=== PATIENT | female | born 1965 | race African-American/Black ===

== ENCOUNTER 2017-03-04 12:59 | Emergency (ER) | payer OTHER, MEDICAID ==
[~2017-03-04] VITALS: Ht 162.6 cm; Wt 70.0 kg
[~2017-03-04 12:59] MED LIST: LAMO25TA4 PO; LEVO25TA7 PO; MECL-109 PO; TRAM50TA3 PO
[2017-03-04] MEDS ORDERED: SODIUM CHLORIDE 0.9% 1,000 ML IV ONE (13:57)
[2017-03-04] MEDS ORDERED: LEVETIRACETAM 500MG PREMIX 100 ML IV ONE (14:00)
[2017-03-04 14:33] LABS: CLARITY URINE CLEAR (CLEAR); COLOR URINE YELLOW (YELLOW); GLUCOSE URINE NEGATIVE (NEGATIVE); KETONES URINE 1+ (NEGATIVE); LEUKOCYTE ESTERASE URINE 1+ (NEGATIVE); NITRITE URINE NEGATIVE (NEGATIVE); OCCULT BLOOD URINE NEGATIVE (NEGATIVE); PH URINE 5.5 (4.5-8.0); PROTEIN URINE NEGATIVE (NEGATIVE); SPECIFIC GRAVITY URINE 1.021 (1.005-1.030); UROBILINOGEN URINE 0.2 E.U./dL (0.2-1.0)
[2017-03-04 15:04] LABS: *AMPHETAMINES SCREEN URINE NEGATIVE (NEGATIVE); *BARBITURATES SCREEN URINE NEGATIVE (NEGATIVE); *BENZODIAZEPINES SCREEN URINE NEGATIVE (NEGATIVE); *COCAINE SCREEN URINE NEGATIVE (NEGATIVE); CANNABINOID URINE SCREEN NEGATIVE (NEGATIVE); METHADONE URINE SCREEN NEGATIVE (NEGATIVE); OPIATES URINE SCREEN NEGATIVE (NEGATIVE); PHENCYCLIDINE URINE SCREEN NEGATIVE (NEGATIVE)
[2017-03-04 15:04] LABS: INR 1.1; PROTHROMBIN TIME 11.7 sec
[2017-03-04 15:08] LABS: BASOPHILS % 0.7 % (0.0-2.0); EOSINOPHILS % 4.2 % (0.0-5.0); HEMATOCRIT. 37.1 % (36.0-48.0); HEMOGLOBIN. 12.2 g/dL (12.0-16.0); LYMPHOCYTES % 30.9 % (20.0-50.0); MEAN CORPUSCULAR HEMOGLOBIN 27.2 pg (28.0-32.0); MEAN CORPUSCULAR VOLUME 82.3 fL (81.0-99.0); MEAN PLATELET VOLUME 8.5 fl (7.4-10.4); NEUTROPHILS % 57.2 % (40.0-76.0); PLATELET 208 x1000/uL (130-400); RED BLOOD CELL COUNT 4.51 mill/uL (4.2-5.4); RED CELL DISTRIBUTION WIDTH 14.5 % (11.6-14.6)
[2017-03-04 15:22] LABS: CHLORIDE 109 mEq/L (98-107)
[2017-03-04 15:28] LABS: CREATINE KINASE 87 IU/L (26-192); PHENYTOIN 0.5 ug/mL (10-20); TROPONIN I < 0.02 ng/mL (0.00-0.04)
[2017-03-04 15:35] LABS: CARBON DIOXIDE 24 mEq/L (21-32); ETHANOL BLOOD < 10 mg/dL
[2017-03-04 15:41] LABS: CARBAMAZEPINE < 0.5 ug/mL (4-12); PHENOBARBITAL < 2.1 ug/mL (15.0-40.0); VALPROIC ACID < 3.0 ug/mL (50-100)
[2017-03-04 16:56] VITALS: BP 133/88
== END 2017-03-04 16:56 | disposition home or self-care (01) ==
LOC: ER 13:02
DX: R56.9 Unspecified convulsions (principal); N39.0 Urinary tract infection, site not specified; E05.90 Thyrotoxicosis, unspecified without thyrotoxic crisis or storm; Z88.5 Allergy status to narcotic agent
CPT/HCPCS: 36415; 80053; 80156; 80165; 80184; 80185; 80305; 81001; 82550; 83605; 84443; 84484; 85025; 85610; 93005; 96365; 99285; G0482; J1953; J7030

== ENCOUNTER 2017-06-03 13:17 | Emergency (ER) | payer OTHER, MEDICAID ==
[~2017-06-03] VITALS: Ht 162.6 cm; Wt 80.0 kg
[2017-06-03 14:15] LABS: EOSINOPHILS % 4.8 % (0.0-5.0); HEMATOCRIT. 41.4 % (36.0-48.0); HEMOGLOBIN. 13.9 g/dL (12.0-16.0); LYMPHOCYTES % 34.6 % (20.0-50.0); MEAN CORPUSCULAR HEMOGLOBIN 28.5 pg (28.0-32.0); MEAN CORPUSCULAR VOLUME 84.9 fL (81.0-99.0); MEAN PLATELET VOLUME 8.4 fl (7.4-10.4); MONOCYTES % 8.4 % (2.0-8.0); NEUTROPHILS % 51.2 % (40.0-76.0); PLATELET 198 x1000/uL (130-400); RED BLOOD CELL COUNT 4.87 mill/uL (4.2-5.4); RED CELL DISTRIBUTION WIDTH 15.6 % (11.6-14.6)
[2017-06-03 14:22] LABS: INR 1.1; PROTHROMBIN TIME 11.4 sec (9.4-11.6)
[2017-06-03 14:28] LABS: CARBON DIOXIDE 28 mEq/L (21-32); CHLORIDE 107 mEq/L (98-107)
[2017-06-03 14:33] LABS: CARBAMAZEPINE < 0.5 ug/mL (4-12); HCG SCREEN NEGATIVE; PHENOBARBITAL < 2.1 ug/mL (15.0-40.0)
[2017-06-03 17:50] VITALS: BP 130/71
== END 2017-06-03 18:04 | disposition home or self-care (01) ==
LOC: ER 13:22
DX: R56.9 Unspecified convulsions (principal); E03.9 Hypothyroidism, unspecified; Z87.440 Personal history of urinary (tract) infections; Z88.6 Allergy status to analgesic agent
CPT/HCPCS: 36415; 70450; 80053; 80156; 80165; 80184; 80185; 80307; 80329; 82962; 84703; 85025; 85610; 99285

== ENCOUNTER 2018-02-04 18:53 | Emergency (ER) | payer OTHER, MEDICAID ==
[~2018-02-04] VITALS: Ht 157.5 cm; Wt 83.0 kg
[2018-02-04] MEDS ORDERED: SODIUM CHLORIDE 0.9% 1,000 ML IV ONE (19:38)
[2018-02-04] MEDS ORDERED: LEVETIRACETAM 500MG TABLET PO ONE (19:45)
[2018-02-04] MEDS ORDERED: TRAMADOL 50MG TABLET PO ONE (19:45)
[2018-02-04 19:57] LABS: BASOPHILS % 1.1 % (0.0-2.0); EOSINOPHILS % 3.7 % (0.0-5.0); HEMATOCRIT. 41.4 % (36.0-48.0); HEMOGLOBIN. 13.9 g/dL (12.0-16.0); LYMPHOCYTES % 35.1 % (20.0-50.0); MEAN CORPUSCULAR HEMOGLOBIN 28.6 pg (28.0-32.0); MEAN CORPUSCULAR VOLUME 85.5 fL (81.0-99.0); MEAN PLATELET VOLUME 7.9 fl (7.4-10.4); MONOCYTES % 7.3 % (2.0-8.0); NEUTROPHILS % 52.8 % (40.0-76.0); PLATELET 253 x1000/uL (130-400); RED BLOOD CELL COUNT 4.84 mill/uL (4.2-5.4)
[2018-02-04 20:00] LABS: CHLORIDE 106 mEq/L (98-107)
[2018-02-04 20:04] LABS: ETHANOL BLOOD < 10 mg/dL
[2018-02-04 21:13] LABS: CLARITY URINE CLEAR (CLEAR); COLOR URINE YELLOW (YELLOW); KETONES URINE NEGATIVE (NEGATIVE); LEUKOCYTE ESTERASE URINE TRACE (NEGATIVE); NITRITE URINE NEGATIVE (NEGATIVE); OCCULT BLOOD URINE NEGATIVE (NEGATIVE); PH URINE 5.5 (4.5-8.0); PROTEIN URINE NEGATIVE (NEGATIVE); SPECIFIC GRAVITY URINE 1.014 (1.005-1.030); UROBILINOGEN URINE 0.2 E.U./dL (0.2-1.0)
[2018-02-04 21:24] LABS: *AMPHETAMINES SCREEN URINE NEGATIVE (NEGATIVE)
[2018-02-04 21:25] LABS: *BARBITURATES SCREEN URINE NEGATIVE (NEGATIVE); *BENZODIAZEPINES SCREEN URINE NEGATIVE (NEGATIVE); *COCAINE SCREEN URINE NEGATIVE (NEGATIVE)
[2018-02-04 21:26] LABS: CANNABINOID URINE SCREEN NEGATIVE (NEGATIVE); METHADONE URINE SCREEN NEGATIVE (NEGATIVE); PHENCYCLIDINE URINE SCREEN NEGATIVE (NEGATIVE)
[2018-02-04 21:27] LABS: OPIATES URINE SCREEN NEGATIVE (NEGATIVE)
[2018-02-04] MEDS ORDERED: KETOROLAC 60MG/2ML VIAL IM ONE (21:45)
[2018-02-04 22:05] VITALS: BP 140/69
== END 2018-02-04 23:10 | disposition home or self-care (01) ==
LOC: ER 18:53
DX: G40.909 Epilepsy, unspecified, not intractable, without status epilepticus (principal); G43.909 Migraine, unspecified, not intractable, without status migrainosus; E03.9 Hypothyroidism, unspecified; Z88.5 Allergy status to narcotic agent
CPT/HCPCS: 36415; 70450; 71045; 80053; 80305; 81003; 84484; 85025; 93005; 96372; 99285; G0482; J1885; J7030

== ENCOUNTER 2018-02-18 14:08 | Emergency (ER) | payer OTHER, MEDICAID ==
[~2018-02-18] VITALS: Ht 172.7 cm; Wt 100.0 kg
[2018-02-18] MEDS ORDERED: LEVETIRACETAM 500MG PREMIX 100 ML IV ONE (14:45)
[2018-02-18] MEDS ORDERED: LORAZEPAM 2MG/ML CPJ IV ONE (14:45)
[2018-02-18 16:40] LABS: CHLORIDE 106 mEq/L (98-107)
[2018-02-18 16:41] LABS: BASOPHILS % 0.8 % (0.0-2.0); EOSINOPHILS % 1.4 % (0.0-5.0); HEMATOCRIT. 40.7 % (36.0-48.0); HEMOGLOBIN. 13.9 g/dL (12.0-16.0); LYMPHOCYTES % 31.5 % (20.0-50.0); MEAN CORPUSCULAR HEMOGLOBIN 29.2 pg (28.0-32.0); MEAN CORPUSCULAR VOLUME 85.5 fL (81.0-99.0); MEAN PLATELET VOLUME 8.2 fl (7.4-10.4); NEUTROPHILS % 59.3 % (40.0-76.0); PLATELET 259 x1000/uL (130-400); RED BLOOD CELL COUNT 4.76 mill/uL (4.2-5.4); RED CELL DISTRIBUTION WIDTH 14.4 % (11.6-14.6)
[2018-02-18] MEDS ORDERED: ONDANSETRON HCL 4MG/2ML VIAL IV ONE (17:45)
[2018-02-18] MEDS ORDERED: MECLIZINE 25MG TABLET PO ONE (17:45)
[2018-02-18 17:47] VITALS: BP 122/78
== END 2018-02-18 18:05 | disposition home or self-care (01) ==
LOC: ER 14:37
DX: G40.909 Epilepsy, unspecified, not intractable, without status epilepticus (principal); E03.9 Hypothyroidism, unspecified; G43.909 Migraine, unspecified, not intractable, without status migrainosus; Z88.5 Allergy status to narcotic agent
CPT/HCPCS: 36415; 80053; 85025; 93005; 96365; 96375; 99285; J1953; J2060; J8597

== ENCOUNTER 2018-04-19 08:55 | Emergency (ER) | payer OTHER, MEDICAID ==
[~2018-04-19] VITALS: Ht 170.2 cm; Wt 87.0 kg
[2018-04-19] MEDS ORDERED: LORAZEPAM 2MG/ML CPJ IV ONE (09:30)
[2018-04-19 09:59] LABS: EOSINOPHILS % 3.6 % (0.0-5.0); HEMATOCRIT. 40.6 % (36.0-48.0); HEMOGLOBIN. 13.7 g/dL (12.0-16.0); LYMPHOCYTES % 39.2 % (20.0-50.0); MEAN CORPUSCULAR HEMOGLOBIN 29.3 pg (28.0-32.0); MEAN CORPUSCULAR VOLUME 86.6 fL (81.0-99.0); MONOCYTES % 8.6 % (2.0-8.0); NEUTROPHILS % 47.6 % (40.0-76.0); PLATELET 212 x1000/uL (130-400); RED BLOOD CELL COUNT 4.69 mill/uL (4.2-5.4); RED CELL DISTRIBUTION WIDTH 14.7 % (11.6-14.6)
[2018-04-19 10:05] LABS: CHLORIDE 108 mEq/L (98-107)
[2018-04-19 11:01] LABS: CLARITY URINE CLEAR (CLEAR); COLOR URINE YELLOW (YELLOW); KETONES URINE NEGATIVE (NEGATIVE); LEUKOCYTE ESTERASE URINE TRACE (NEGATIVE); NITRITE URINE NEGATIVE (NEGATIVE); OCCULT BLOOD URINE NEGATIVE (NEGATIVE); PROTEIN URINE NEGATIVE (NEGATIVE); SPECIFIC GRAVITY URINE 1.013 (1.005-1.030); UROBILINOGEN URINE 0.2 E.U./dL (0.2-1.0)
[2018-04-19 12:12] VITALS: BP 128/68
== END 2018-04-19 12:07 | disposition home or self-care (01) ==
LOC: ER 09:29
DX: G40.909 Epilepsy, unspecified, not intractable, without status epilepticus (principal); E16.2 Hypoglycemia, unspecified; Z88.5 Allergy status to narcotic agent; Z79.899 Other long term (current) drug therapy
CPT/HCPCS: 36415; 70450; 72125; 80053; 81003; 81025; 82962; 84484; 85025; 93005; 96374; 99285; J2060

== ENCOUNTER 2018-09-09 20:29 | Emergency (ER) | payer OTHER, MEDICAID ==
[~2018-09-09] VITALS: Ht 165.1 cm; Wt 91.0 kg
[2018-09-09] MEDS ORDERED: SODIUM CHLORIDE 0.9% 1,000 ML IV ONE (21:19)
[2018-09-09 22:00] LABS: BASOPHILS % 0.8 % (0.0-2.0); EOSINOPHILS % 3.8 % (0.0-5.0); HEMATOCRIT. 40.6 % (36.0-48.0); HEMOGLOBIN. 13.5 g/dL (12.0-16.0); LYMPHOCYTES % 37.6 % (20.0-50.0); MEAN CORPUSCULAR HEMOGLOBIN 29.4 pg (28.0-32.0); MEAN CORPUSCULAR VOLUME 88.6 fL (81.0-99.0); MEAN PLATELET VOLUME 8.3 fl (7.4-10.4); MONOCYTES % 7.9 % (2.0-8.0); NEUTROPHILS % 49.9 % (40.0-76.0); PLATELET 227 x1000/uL (130-400); RED BLOOD CELL COUNT 4.58 mill/uL (4.2-5.4); RED CELL DISTRIBUTION WIDTH 13.9 % (11.6-14.6)
[2018-09-09 22:04] LABS: CHLORIDE 108 mEq/L (98-107)
[2018-09-09 22:45] LABS: CLARITY URINE CLEAR (CLEAR); COLOR URINE YELLOW (YELLOW); KETONES URINE NEGATIVE (NEGATIVE); LEUKOCYTE ESTERASE URINE NEGATIVE (NEGATIVE); NITRITE URINE NEGATIVE (NEGATIVE); OCCULT BLOOD URINE 1+ (NEGATIVE); PROTEIN URINE NEGATIVE (NEGATIVE); SPECIFIC GRAVITY URINE 1.015 (1.005-1.030); UROBILINOGEN URINE 0.2 E.U./dL (0.2-1.0)
[2018-09-09 23:57] VITALS: BP 151/77
== END 2018-09-10 00:09 | disposition home or self-care (01) ==
LOC: ER 20:29
DX: S00.83XA Contusion of other part of head, initial encounter (principal); G40.909 Epilepsy, unspecified, not intractable, without status epilepticus; Z88.5 Allergy status to narcotic agent; Z79.899 Other long term (current) drug therapy; X58.XXXA Exposure to other specified factors, initial encounter; Y93.89 Activity, other specified; Y92.89 Other specified places as the place of occurrence of the external cause; Y99.8 Other external cause status
CPT/HCPCS: 36415; 80053; 81003; 85025; 93005; 96360; 99284; J7030

== ENCOUNTER 2019-06-18 15:49 | Emergency (ER) | payer OTHER, MEDICAID ==
[~2019-06-18 15:49] MED LIST changes: -LAMO25TA4 PO; +LAMO25TA9 PO
[2019-06-18] MEDS ORDERED: TRAMADOL 50MG TABLET PO ONE (18:30)
[2019-06-18] MEDS ORDERED: ACETAMINOPHEN 500MG TABLET PO ONE (18:30)
[2019-06-18 21:44] VITALS: BP 118/71
== END 2019-06-18 21:45 | disposition home or self-care (01) ==
LOC: ER 15:49
DX: J40 Bronchitis, not specified as acute or chronic (principal); H11.31 Conjunctival hemorrhage, right eye; R07.89 Other chest pain; G40.909 Epilepsy, unspecified, not intractable, without status epilepticus; Z88.5 Allergy status to narcotic agent
CPT/HCPCS: 36415; 84484; 99283

== ENCOUNTER 2019-08-28 12:57 | Inpatient (IN) | payer OTHER, MEDICAID ==
[~2019-08-28] VITALS: Ht 165.1 cm; Wt 89.8 kg
[~2019-08-28 12:57] MED LIST changes: -MECL-109 PO; +MECL-159 PO
[2019-08-28] MEDS ORDERED: SODIUM CHLORIDE 0.9% 1,000 ML IV ONE (15:51)
[2019-08-28] MEDS ORDERED: LEVETIRACETAM 500MG PREMIX 100 ML IV ONE (16:45)
[2019-08-28 16:59] LABS: BASOPHILS % 0.8 % (0.0-2.0); EOSINOPHILS % 3.6 % (0.0-5.0); HEMATOCRIT. 40.2 % (36.0-48.0); HEMOGLOBIN. 13.1 g/dL (12.0-16.0); LYMPHOCYTES % 32.6 % (20.0-50.0); MEAN CORPUSCULAR HEMOGLOBIN 28.9 pg (28.0-32.0); MEAN CORPUSCULAR VOLUME 88.5 fL (81.0-99.0); MEAN PLATELET VOLUME 8.4 fl (7.4-10.4); MONOCYTES % 7.7 % (2.0-8.0); NEUTROPHILS % 55.3 % (40.0-76.0); PLATELET 229 x1000/uL (130-400); RED BLOOD CELL COUNT 4.55 mill/uL (4.2-5.4); RED CELL DISTRIBUTION WIDTH 13.9 % (11.6-14.6)
[2019-08-28 17:05] LABS: CHLORIDE 113 mEq/L (98-107)
[2019-08-28 17:09] LABS: ETHANOL BLOOD < 10 mg/dL
[2019-08-28 17:34] LABS: CARBAMAZEPINE < 0.5 ug/mL (4-12); PHENOBARBITAL < 2.1 ug/mL (15.0-40.0); VALPROIC ACID < 3.0 ug/mL (50-100)
[2019-08-28] MEDS ORDERED: KETOROLAC 30MG/ML VIAL IV ONE ×2 (18:15→20:45)
[2019-08-28 18:22] LABS: CLARITY URINE CLEAR (CLEAR); COLOR URINE YELLOW (YELLOW); KETONES URINE NEGATIVE (NEGATIVE); LEUKOCYTE ESTERASE URINE TRACE (NEGATIVE); NITRITE URINE NEGATIVE (NEGATIVE); OCCULT BLOOD URINE NEGATIVE (NEGATIVE); PROTEIN URINE NEGATIVE (NEGATIVE); SPECIFIC GRAVITY URINE 1.015 (1.005-1.030); UROBILINOGEN URINE 0.2 E.U./dL (0.2-1.0)
[2019-08-28 18:50] LABS: *AMPHETAMINES SCREEN URINE NEGATIVE (NEGATIVE); *BARBITURATES SCREEN URINE NEGATIVE (NEGATIVE); *BENZODIAZEPINES SCREEN URINE NEGATIVE (NEGATIVE); *COCAINE SCREEN URINE NEGATIVE (NEGATIVE); METHADONE URINE SCREEN NEGATIVE (NEGATIVE); OPIATES URINE SCREEN NEGATIVE (NEGATIVE)
[2019-08-28 18:51] LABS: CANNABINOID URINE SCREEN NEGATIVE (NEGATIVE); PHENCYCLIDINE URINE SCREEN NEGATIVE (NEGATIVE)
[2019-08-28] MEDS ORDERED: LORAZEPAM 2MG/ML CPJ IV PRN (19:45)
[2019-08-28] MEDS ORDERED: ACETAMINOPHEN 650MG SUPP PR PRN (19:45)
[2019-08-28] MEDS ORDERED: SODIUM CHLORIDE 0.45% 1,000 ML IV SCH (19:45)
[2019-08-28] MEDS ORDERED: MAGNESIUM/ALUMINUM HYDROXIDE/SIMETHICONE 30ML UDC PO PRN (19:45)
[2019-08-28] MEDS ORDERED: IPRATROPIUM/ALBUTEROL 0.5-3(2.5)MG/3ML NEB NEB PRN (19:45)
[2019-08-28] MEDS ORDERED: ONDANSETRON HCL 4MG/2ML INJ IV PRN (19:45)
[2019-08-28] MEDS ORDERED: MECLIZINE 25MG TABLET PO PRN (19:45)
[2019-08-28] MEDS ORDERED: HYDROCODONE/ACETAMINOPHEN 5/325MG TABLET PO PRN (19:45)
[2019-08-28] MEDS ORDERED: GUAIFENESIN 200MG/10ML SUGAR FREE UDC PO PRN (19:45)
[2019-08-28] MEDS ORDERED: LEVETIRACETAM 500 MG in SODIUM CHLORIDE 0.9% 100 ML IV SCH (19:45)
[2019-08-28] MEDS ORDERED: DOCUSATE SODIUM 100MG CAPSULE PO PRN (19:45)
[2019-08-28] MEDS ORDERED: CLONIDINE 0.1MG TABLET PO PRN (19:45)
[2019-08-28] MEDS ORDERED: DIPHENHYDRAMINE 50MG/ML VIAL IV PRN (19:45)
[2019-08-28] MEDS: ACETAMINOPHEN 325MG TABLET PO PRN (22:05)
[2019-08-28 23:52] LABS: CREATINE KINASE 167 IU/L (26-192)
[2019-08-28 23:54] LABS: CREATINE KINASE MB FRACTION < 1.0 ng/mL (0.5-3.6)
[2019-08-29 04:13] LABS: BASOPHILS % 1.4 % (0.0-2.0); HEMATOCRIT. 37.2 % (36.0-48.0); HEMOGLOBIN. 12.5 g/dL (12.0-16.0); LYMPHOCYTES % 44.4 % (20.0-50.0); MEAN CORPUSCULAR HEMOGLOBIN 29.6 pg (28.0-32.0); MEAN CORPUSCULAR VOLUME 88.4 fL (81.0-99.0); MEAN PLATELET VOLUME 8.2 fl (7.4-10.4); MONOCYTES % 9.9 % (2.0-8.0); NEUTROPHILS % 40.3 % (40.0-76.0); PLATELET 190 x1000/uL (130-400); RED BLOOD CELL COUNT 4.21 mill/uL (4.2-5.4); RED CELL DISTRIBUTION WIDTH 13.3 % (11.6-14.6)
[2019-08-29 04:29] LABS: CHLORIDE 112 mEq/L (98-107)
[2019-08-29 04:37] LABS: HDL CHOLESTEROL 58 mg/dL (40-59); LDL CHOLESTEROL 59 mg/dL (5-100)
[2019-08-29 04:39] LABS: CREATINE KINASE 154 IU/L (26-192); T4 FREE 0.87 ng/dL (0.76-1.46)
[2019-08-29 04:44] LABS: CREATINE KINASE MB FRACTION < 1.0 ng/mL (0.5-3.6)
[2019-08-29] MEDS ORDERED: TRAMADOL 50MG TABLET PO PRN (09:58)
[2019-08-29] MEDS ORDERED: NA PHOS,M-B/NA PHOS,DI-BA ENEMA 118ML PR PRN (10:00)
[2019-08-29] MEDS: LEVOTHYROXINE SODIUM 25MCG TABLET PO SCH (10:30)
[2019-08-29] MEDS: LAMOTRIGINE 25MG TABLET PO SCH (10:30)
[2019-08-29] MEDS: ASPIRIN 81MG EC TABLET PO SCH (10:30)
[2019-08-29] MEDS: ENOXAPARIN 40MG/0.4ML SYR SUBCUT SCH (10:31)
[2019-08-29] MEDS: LEVETIRACETAM 500MG PREMIX 100 ML IV SCH ×2 (10:48→22:46)
[2019-08-29] MEDS: ACETAMINOPHEN 325MG TABLET PO PRN (15:58)
[2019-08-29 18:13] VITALS: BP 139/76
[2019-08-29] MEDS ORDERED: ATOR-2 MT (19:15)
[2019-08-29] MEDS ORDERED: ASPI-1497 MT (19:15)
[2019-08-29] MEDS ORDERED: CLOP75TA4 PO (19:15)
[2019-08-29] MEDS ORDERED: LAMO150T5 MT (19:15)
[2019-08-29] MEDS ORDERED: KEPP250 MT (19:15)
[2019-08-29 20:00] VITALS: BP 140/73
[2019-08-30] VITALS: BP 115/65
[2019-08-30 04:00] VITALS: BP 111/56
[2019-08-30] MEDS: LEVOTHYROXINE SODIUM 25MCG TABLET PO SCH (06:45)
[2019-08-30 08:00] VITALS: BP 131/56
[2019-08-30] MEDS: ASPIRIN 81MG EC TABLET PO SCH (09:00)
[2019-08-30] MEDS: ENOXAPARIN 40MG/0.4ML SYR SUBCUT SCH (10:55)
[2019-08-30] MEDS ORDERED: MECLIZINE 25MG TABLET PO NR (11:00)
[2019-08-30] MEDS: LAMOTRIGINE 25MG TABLET PO SCH (11:38)
[2019-08-30] MEDS: LEVETIRACETAM 500MG PREMIX 100 ML IV SCH (11:39)
[2019-08-30 12:00] VITALS: BP 139/74
[2019-08-30] MEDS ORDERED: MORPHINE SULFATE 2 MG/ML CPJ (NOT FOR IM USE) IV SCH (12:45)
[2019-08-30] MEDS ORDERED: MECL-159 MT (12:52)
[2019-08-30 16:00] VITALS: BP 125/73
[2019-08-30 16:02] LABS: CREATINE KINASE MB FRACTION 1.1 ng/mL (0.5-3.6)
[2019-08-30 16:03] LABS: CREATINE KINASE 145 IU/L (26-192)
[2019-08-30 16:45] VITALS: BP 135/72
== END 2019-08-30 19:00 | disposition home or self-care (01) | DRG 101 ==
LOC: ER 12:57 → 5WST 17:20 → EDBEDREQ 18:07 → SUPCPDRO 19:17 → ENRESERV 08-29 14:54 → 5WST 08-29 17:54
PROVIDERS: ADMIT Internal Medicine; ATTEND Internal Medicine
DX: G40.909 Epilepsy, unspecified, not intractable, without status epilepticus (principal); E66.9 Obesity, unspecified; E78.5 Hyperlipidemia, unspecified; E86.0 Dehydration; E78.00 Pure hypercholesterolemia, unspecified; M79.18 Myalgia, other site; I10 Essential (primary) hypertension; Z86.73 Personal history of transient ischemic attack (TIA), and cerebral infarction without residual deficits; Z88.8 Allergy status to other drugs, medicaments and biological substances; Z79.899 Other long term (current) drug therapy; Z68.32 Body mass index [BMI] 32.0-32.9, adult; R42 Dizziness and giddiness
CPT/HCPCS: 36415; 80053; 80061; 80156; 80165; 80184; 80185; 80305; 80320; 81003; 82542; 82550; 82553; 84439; 84443; 84484; 85025; 93005; 93306; 93880; 97162; 99285; C1893; J1650; J1885; J1953; J2270; J7030; J8597; G0480

== ENCOUNTER 2021-10-03 14:59 | Emergency (ER) | payer OTHER, MEDICAID ==
[~2021-10-03] VITALS: Ht 175.3 cm; Wt 95.0 kg
[~2021-10-03 14:59] MED LIST changes: +ASPI-1497 MT; +ATOR-2 MT; +CLOP-31 PO; +KEPP250 MT; +LAMO150T5 MT; -LEVO25TA7 PO; +MECL-159 MT
[2021-10-03] MEDS ORDERED: ONDANSETRON HCL 4MG/2ML INJ IV STA (15:55)
[2021-10-03] MEDS ORDERED: LAMOTRIGINE 150MG TABLET PO STA (15:55)
[2021-10-03] MEDS ORDERED: MECLIZINE 25MG TABLET PO ONE (16:00)
[2021-10-03] MEDS ORDERED: SODIUM CHLORIDE 0.9% 1,000 ML IV ONE (16:00)
[2021-10-03] MEDS ORDERED: LEVETIRACETAM 500MG PREMIX 100 ML IV ONE (16:00)
[2021-10-03 16:56] LABS: BASOPHILS % 0.8 % (0.0-2.0); HEMATOCRIT. 42.4 % (36.0-48.0); HEMOGLOBIN. 13.8 g/dL (12.0-16.0); LYMPHOCYTES % 28.5 % (20.0-50.0); MEAN CORPUSCULAR HEMOGLOBIN 27.4 pg (28.0-32.0); MEAN CORPUSCULAR VOLUME 84.4 fL (81.0-99.0); MEAN PLATELET VOLUME 8.5 fl (7.4-10.4); MONOCYTES % 6.8 % (2.0-8.0); NEUTROPHILS % 60.9 % (40.0-76.0); PLATELET 233 x1000/uL (130-400); RED BLOOD CELL COUNT 5.02 mill/uL (4.2-5.4); RED CELL DISTRIBUTION WIDTH 15.4 % (11.6-14.6)
[2021-10-03 17:01] LABS: CHLORIDE 109 mEq/L (98-107)
[2021-10-03 20:12] VITALS: BP 155/72
== END 2021-10-03 20:15 | disposition home or self-care (01) ==
LOC: ER 14:59
DX: H81.10 Benign paroxysmal vertigo, unspecified ear (principal); G40.909 Epilepsy, unspecified, not intractable, without status epilepticus; I10 Essential (primary) hypertension; E78.00 Pure hypercholesterolemia, unspecified; Z79.82 Long term (current) use of aspirin; Z88.5 Allergy status to narcotic agent
CPT/HCPCS: 36415; 80053; 85025; 93005; 96365; 96366; 96375; 99284; J1953; J2405; J7030; J8597

== ENCOUNTER 2022-11-09 01:49 | Emergency (ER) | payer OTHER, MEDICAID ==
[~2022-11-09] VITALS: Ht 157.5 cm; Wt 96.0 kg
[2022-11-09] MEDS ORDERED: LEVETIRACETAM 500MG TABLET PO ONE (02:30)
[2022-11-09 02:54] LABS: BASOPHILS % 0.4 % (0.0-2.0); EOSINOPHILS % 3.1 % (0.0-5.0); HEMATOCRIT. 42.1 % (36.0-48.0); HEMOGLOBIN. 14.1 g/dL (12.0-16.0); LYMPHOCYTES % 31.8 % (20.0-50.0); MEAN CORPUSCULAR HEMOGLOBIN 28.9 pg (28.0-32.0); MEAN CORPUSCULAR VOLUME 86.1 fL (81.0-99.0); MEAN PLATELET VOLUME 8.4 fl (7.4-10.4); MONOCYTES % 7.5 % (2.0-8.0); NEUTROPHILS % 57.2 % (40.0-76.0); PLATELET 204 x1000/uL (130-400); RED BLOOD CELL COUNT 4.89 mill/uL (4.2-5.4); RED CELL DISTRIBUTION WIDTH 15.7 % (11.6-14.6)
[2022-11-09 03:10] LABS: CHLORIDE 113 mEq/L (98-107)
[2022-11-09] MEDS ORDERED: POTASSIUM CHLORIDE 20MEQ/PACKET PO NR (05:30)
[2022-11-09 06:00] VITALS: BP 116/64
== END 2022-11-09 06:20 | disposition home or self-care (01) ==
LOC: ER 01:49
DX: R56.9 Unspecified convulsions (principal); E78.00 Pure hypercholesterolemia, unspecified; I10 Essential (primary) hypertension; Z79.899 Other long term (current) drug therapy; Z88.5 Allergy status to narcotic agent
CPT/HCPCS: 36415; 80053; 85025; 99284

== ENCOUNTER 2023-07-16 20:18 | Emergency (ER) | payer OTHER, MEDICAID ==
[~2023-07-16] VITALS: Ht 165.1 cm; Wt 78.2 kg
[~2023-07-16 20:18] MED LIST changes: +LEVO25TA7 PO; -MECL-159 MT; -MECL-159 PO; +MECL-299 MT; +MECL-299 PO; -TRAM50TA3 PO
[2023-07-16 20:24] VITALS: O2SAT 98
[2023-07-16] MEDS ORDERED: DIAZEPAM 2 MG TABLET PO ONE (21:00)
[2023-07-16 21:52] LABS: BASOPHILS % 0.7 % (0.0-2.0); EOSINOPHILS % 3.4 % (0.0-5.0); HEMATOCRIT. 41.7 % (36.0-48.0); HEMOGLOBIN. 13.7 g/dL (12.0-16.0); LYMPHOCYTES % 35.7 % (20.0-50.0); MEAN CORPUSCULAR HEMOGLOBIN 28.9 pg (28.0-32.0); MEAN CORPUSCULAR HGB CONC 32.7 g/dL (31.0-37.0); MEAN CORPUSCULAR VOLUME 88.1 fL (81.0-99.0); MEAN PLATELET VOLUME 8.4 fl (7.4-10.4); MONOCYTES % 7.3 % (2.0-8.0); NEUTROPHILS % 52.9 % (40.0-76.0); PLATELET 227 x1000/uL (130-400); RED BLOOD CELL COUNT 4.74 mill/uL (4.2-5.4); RED CELL DISTRIBUTION WIDTH 15.1 % (11.6-14.6); WHITE BLOOD COUNT 5.7 x1000/uL (4.5-11.0)
[2023-07-16 22:52] LABS: ALANINE AMINOTRANSFERASE 19 IU/L (10-49); ALBUMIN 4.5 g/dL (3.2-4.8); ASPARTATE AMINOTRANSFERASE 28 IU/L (<34); BILIRUBIN TOTAL 0.6 mg/dL (0.1-1.0); CALCIUM 9.8 mg/dL (8.7-10.4); CARBON DIOXIDE 23 mEq/L (21-32); CHLORIDE 110 mEq/L (98-107); CREATININE 0.6 mg/dL (0.6-1.0); GLUCOSE 87 mg/dL (70-105); POTASSIUM 4.1 mEq/L (3.5-5.1); PROTEIN TOTAL 6.9 g/dL (6.0-8.3); SODIUM 143 mEq/L (136-145); UREA NITROGEN BLOOD 13 mg/dL (9-23)
[2023-07-17 00:32] VITALS: BP 123/70; PULSE 77; RESP 16; TEMP 97.9
== END 2023-07-17 00:34 | disposition home or self-care (01) ==
LOC: ER 20:18
DX: R42 Dizziness and giddiness (principal); E78.00 Pure hypercholesterolemia, unspecified; I10 Essential (primary) hypertension; Z79.899 Other long term (current) drug therapy
CPT/HCPCS: 36415; 80053; 85025; 99283

== ENCOUNTER 2023-11-04 14:49 | Emergency (ER) | payer BC, MEDICAID ==
[~2023-11-04] VITALS: Ht 160 cm; Wt 69.0 kg
[~2023-11-04 14:49] MED LIST changes: +COLC0.6C3 MT; +DAPA10TA PO; +FINE20TA PO
[2023-11-04 14:51] VITALS: O2SAT 100
[2023-11-04 15:36] VITALS: TEMP 98.5
[2023-11-04] MEDS: SODIUM CHLORIDE 0.9% 1,000 ML IV ONE (16:06)
[2023-11-04] MEDS: ONDANSETRON HCL 4MG/2ML INJ IV ONE ×2 (16:06→18:55)
[2023-11-04] MEDS: LORAZEPAM 2MG/ML INJ IV ONE (16:06)
[2023-11-04 16:07] LABS: BASOPHILS % 1.4 % (0.0-2.0); EOSINOPHILS % 3.3 % (0.0-5.0); HEMATOCRIT. 41.7 % (36.0-48.0); HEMOGLOBIN. 13.9 g/dL (12.0-16.0); LYMPHOCYTES % 33.9 % (20.0-50.0); MEAN CORPUSCULAR HEMOGLOBIN 29.2 pg (28.0-32.0); MEAN CORPUSCULAR HGB CONC 33.3 g/dL (31.0-37.0); MEAN CORPUSCULAR VOLUME 87.7 fL (81.0-99.0); MEAN PLATELET VOLUME 8.4 fl (7.4-10.4); MONOCYTES % 7.9 % (2.0-8.0); NEUTROPHILS % 53.5 % (40.0-76.0); PLATELET 201 x1000/uL (130-400); RED BLOOD CELL COUNT 4.76 mill/uL (4.2-5.4); RED CELL DISTRIBUTION WIDTH 14.8 % (11.6-14.6); WHITE BLOOD COUNT 5.1 x1000/uL (4.5-11.0)
[2023-11-04 16:20] LABS: ALANINE AMINOTRANSFERASE 26 IU/L (10-49); ALBUMIN 4.7 g/dL (3.2-4.8); ASPARTATE AMINOTRANSFERASE 30 IU/L (<34); BILIRUBIN TOTAL 0.5 mg/dL (0.1-1.0); CALCIUM 9.6 mg/dL (8.7-10.4); CARBON DIOXIDE 27 mEq/L (21-32); CHLORIDE 107 mEq/L (98-107); CREATININE 0.7 mg/dL (0.6-1.0); GLUCOSE 92 mg/dL (70-105); POTASSIUM 4.6 mEq/L (3.5-5.1); PROTEIN TOTAL 7.7 g/dL (6.0-8.3); SODIUM 139 mEq/L (136-145); UREA NITROGEN BLOOD 16 mg/dL (9-23)
[2023-11-04 16:24] LABS: TROPONIN I HIGH SENSITIVITY < 4 ng/L (3.0-34)
[2023-11-04] MEDS ORDERED: METHYLPREDNISOLONE SOD SUCC 40MG VIAL IV ONE (18:30)
[2023-11-04] MEDS ORDERED: MECLIZINE 25MG TABLET PO ONE (18:30)
[2023-11-04] MEDS: MECLIZINE 12.5MG TABLET PO NR (18:55)
[2023-11-04] MEDS: METHYLPREDNISOLONE SOD SUCC 125MG/2ML (ACT-O-VIAL) IV NR (18:55)
[2023-11-04] MEDS ORDERED: TOPUD MT (20:52)
[2023-11-04] MEDS ORDERED: MECL-299 PO (20:52)
[2023-11-04] MEDS ORDERED: P50 MT (20:52)
[2023-11-04] MEDS ORDERED: ONDA4TAB50 MT (20:52)
[2023-11-04 20:54] LABS: TROPONIN I HIGH SENSITIVITY < 4 ng/L (3.0-34)
[2023-11-04 21:11] VITALS: BP_DIAS 76; PULSE 79; RESP 18
[2023-11-04 21:15] VITALS: BP_SYST 141
== END 2023-11-04 21:26 | disposition home or self-care (01) ==
LOC: ER 14:49
DX: R42 Dizziness and giddiness (principal); E78.00 Pure hypercholesterolemia, unspecified; E11.9 Type 2 diabetes mellitus without complications; I11.0 Hypertensive heart disease with heart failure; I50.9 Heart failure, unspecified; Z88.6 Allergy status to analgesic agent; Z88.5 Allergy status to narcotic agent; Z79.82 Long term (current) use of aspirin; Z86.73 Personal history of transient ischemic attack (TIA), and cerebral infarction without residual deficits; Z98.890 Other specified postprocedural states
CPT/HCPCS: 99285; 96374; 70450; 71045; 96375; 96361; 80053; 82962; 83880; 85025; 84484; 36415; 93005; 96376; J8597; J2060; J2930; J2405; J7030; J2920

== ENCOUNTER 2024-01-11 14:39 | Emergency (ER) | payer BC, MEDICAID ==
[~2024-01-11] VITALS: Ht 165.1 cm; Wt 80.3 kg
[~2024-01-11 14:39] MED LIST changes: +ONDA4TAB50 MT; +P50 MT; +TOPUD MT
[2024-01-11 15:00] VITALS: O2SAT 98
[2024-01-11] MEDS ORDERED: IBUP-2028 MT (17:09)
[2024-01-11 17:20] VITALS: BP 131/78; PULSE 20; RESP 20; TEMP 98
== END 2024-01-11 17:22 | disposition home or self-care (01) ==
LOC: ER 14:39
DX: M25.561 Pain in right knee (principal); M25.562 Pain in left knee; E11.9 Type 2 diabetes mellitus without complications; E78.00 Pure hypercholesterolemia, unspecified; I10 Essential (primary) hypertension; Z86.73 Personal history of transient ischemic attack (TIA), and cerebral infarction without residual deficits
CPT/HCPCS: 73560; 99283

== ENCOUNTER 2024-09-10 16:35 | Emergency (ER) | payer BC, MEDICAID ==
[~2024-09-10] VITALS: Ht 170.2 cm; Wt 88.0 kg
[~2024-09-10 16:35] MED LIST changes: -ATOR-2 MT; +ATOR40TA70 PO; -CLOP-31 PO; +CLOP75TA33 PO; -COLC0.6C3 MT; -KEPP250 MT; -LAMO25TA9 PO; +LEVE500T19 PO; -LEVO25TA7 PO; +LEVO75TA PO; -MECL-299 MT; -ONDA4TAB50 MT; -P50 MT; -TOPUD MT
[2024-09-10 16:40] VITALS: BP 155/72; PULSE 69; RESP 18; TEMP 97.7; O2SAT 99
[2024-09-10 21:59] LABS: BASOPHILS % 0.9 % (0.0-2.0); EOSINOPHILS % 2.8 % (0.0-5.0); HEMATOCRIT. 45.3 % (36.0-48.0); HEMOGLOBIN. 14.9 g/dL (12.0-16.0); LYMPHOCYTES % 38.4 % (20.0-50.0); MEAN CORPUSCULAR HEMOGLOBIN 29.2 pg (28.0-32.0); MEAN CORPUSCULAR VOLUME 88.5 fL (81.0-99.0); MEAN PLATELET VOLUME 7.9 fl (7.4-10.4); MONOCYTES % 6.4 % (2.0-8.0); NEUTROPHILS % 51.5 % (40.0-76.0); PLATELET 256 x1000/uL (130-400); RED BLOOD CELL COUNT 5.11 mill/uL (4.2-5.4); RED CELL DISTRIBUTION WIDTH 14.6 % (11.6-14.6); WHITE BLOOD COUNT 6.3 x1000/uL (4.5-11.0)
[2024-09-10 22:03] LABS: CHLORIDE 110 mEq/L (98-107); SODIUM 144 mEq/L (136-145)
[2024-09-10 22:04] LABS: CALCIUM 10.3 mg/dL (8.7-10.4); CARBON DIOXIDE 25 mEq/L (21-32)
[2024-09-10 22:09] LABS: CREATININE 0.9 mg/dL (0.6-1.0); GLUCOSE 95 mg/dL (70-105); UREA NITROGEN BLOOD 18 mg/dL (9-23)
[2024-09-10 22:11] LABS: TROPONIN I HIGH SENSITIVITY < 4 ng/L (3.0-34)
[2024-09-11] MEDS ORDERED: MECL-299 MT (03:08)
== END 2024-09-11 03:44 | disposition home or self-care (01) ==
LOC: ER 16:35
DX: R42 Dizziness and giddiness (principal); J11.1 Influenza due to unidentified influenza virus with other respiratory manifestations; E11.9 Type 2 diabetes mellitus without complications; Z79.02 Long term (current) use of antithrombotics/antiplatelets; Z79.82 Long term (current) use of aspirin; Z79.84 Long term (current) use of oral hypoglycemic drugs; Z79.890 Hormone replacement therapy; Z79.899 Other long term (current) drug therapy; Z88.5 Allergy status to narcotic agent
CPT/HCPCS: 36415; 71045; 80048; 84484; 85025; 93005; 99285

== ENCOUNTER 2024-11-16 00:39 | Emergency (ER) | payer BC, MEDICAID ==
[~2024-11-16] VITALS: Ht 165.1 cm; Wt 85.0 kg
[~2024-11-16 00:39] MED LIST changes: -ASPI-1497 MT; +ASPI-1497 PO; +ATOR-2 PO; -ATOR40TA70 PO; -FINE20TA PO; +LAM15 MT; -LAMO150T5 MT; +LAMO150T5 PO; +LOSA50TA41 PO; +NITR100C MT
[2024-11-16 01:14] VITALS: O2SAT 98
[2024-11-16 01:18] VITALS: TEMP 36.8; O2SAT 98
[2024-11-16] MEDS ORDERED: CEPH500T MT (02:56)
[2024-11-16 03:21] VITALS: BP 108/64; PULSE 86; RESP 18
[2024-11-16] MEDS: KETOROLAC 15MG/ML VIAL IM ONE (03:21)
== END 2024-11-16 03:22 | disposition home or self-care (01) ==
LOC: ER 00:39
DX: L03.113 Cellulitis of right upper limb (principal); E11.9 Type 2 diabetes mellitus without complications; E03.9 Hypothyroidism, unspecified; Z88.5 Allergy status to narcotic agent; Z79.899 Other long term (current) drug therapy
CPT/HCPCS: 99285; 93971; 96372; J1885

== ENCOUNTER 2025-02-28 17:36 | Emergency (ER) | payer BC, MEDICAID ==
[~2025-02-28] VITALS: Ht 177.8 cm; Wt 118.0 kg
[~2025-02-28 17:36] MED LIST changes: -ATOR-2 PO; +DAPA10TA MT; -DAPA10TA PO; +FINE20TA PO; +KEPP500 PO; -LAM15 MT; -LEVE500T19 PO; -NITR100C MT
[2025-02-28 17:38] VITALS: O2SAT 97
[2025-02-28 19:38] LABS: BASOPHILS % 0.7 % (0.0-2.0); EOSINOPHILS % 3.7 % (0.0-5.0); HEMATOCRIT. 41.3 % (36.0-48.0); HEMOGLOBIN. 13.4 g/dL (12.0-16.0); LYMPHOCYTES % 36.5 % (20.0-50.0); MEAN PLATELET VOLUME 8.2 fl (7.4-10.4); MONOCYTES % 6.3 % (2.0-8.0); NEUTROPHILS % 52.8 % (40.0-76.0); PLATELET 205 x1000/uL (130-400); RED BLOOD CELL COUNT 4.69 mill/uL (4.2-5.4); RED CELL DISTRIBUTION WIDTH 14.7 % (11.6-14.6)
[2025-02-28 19:54] LABS: CREATININE 0.7 mg/dL (0.6-1.0); ETHANOL BLOOD < 10 mg/dL (<10); UREA NITROGEN BLOOD 13 mg/dL (9-23)
[2025-02-28 19:56] LABS: TROPONIN I HIGH SENSITIVITY < 4 ng/L (3.0-34)
[2025-02-28 21:00] VITALS: BP 145/75; PULSE 65; RESP 18; TEMP 36.7; O2SAT 98
== END 2025-02-28 21:08 | disposition home or self-care (01) ==
LOC: ER 17:36
DX: G40.909 Epilepsy, unspecified, not intractable, without status epilepticus (principal); E11.9 Type 2 diabetes mellitus without complications; I10 Essential (primary) hypertension; Z79.02 Long term (current) use of antithrombotics/antiplatelets; Z79.82 Long term (current) use of aspirin; Z79.84 Long term (current) use of oral hypoglycemic drugs; Z79.890 Hormone replacement therapy; Z79.899 Other long term (current) drug therapy; Z86.73 Personal history of transient ischemic attack (TIA), and cerebral infarction without residual deficits; Z88.5 Allergy status to narcotic agent
CPT/HCPCS: 36415; 80048; 80320; 82962; 84484; 85025; 99283; G0480

== ENCOUNTER 2025-04-08 18:40 | Emergency (ER) | payer BC ==
[~2025-04-08] VITALS: Ht 170.2 cm; Wt 91.0 kg
[~2025-04-08 18:40] MED LIST changes: -DAPA10TA MT; +IBUP200C93 PO; +LIP40 MT
[2025-04-08 18:42] VITALS: O2SAT 98
[2025-04-08] MEDS: METHOCARBAMOL 750MG TABLET PO SCH (20:05)
[2025-04-08] MEDS: KETOROLAC 30MG/ML VIAL IM ONE (20:05)
[2025-04-08 20:30] LABS: BASOPHILS % 0.7 % (0.0-2.0); EOSINOPHILS % 4.6 % (0.0-5.0); HEMATOCRIT. 37.5 % (36.0-48.0); HEMOGLOBIN. 12.4 g/dL (12.0-16.0); LYMPHOCYTES % 34.9 % (20.0-50.0); MEAN PLATELET VOLUME 8.0 fl (7.4-10.4); MONOCYTES % 9.3 % (2.0-8.0); NEUTROPHILS % 50.5 % (40.0-76.0); PLATELET 203 x1000/uL (130-400); RED BLOOD CELL COUNT 4.26 mill/uL (4.2-5.4); RED CELL DISTRIBUTION WIDTH 14.5 % (11.6-14.6)
[2025-04-08 20:42] LABS: INR 1.0
[2025-04-08 20:47] LABS: CREATININE 0.7 mg/dL (0.6-1.0); UREA NITROGEN BLOOD 16 mg/dL (9-23)
[2025-04-08 20:49] LABS: PHOSPHORUS 3.8 mg/dL (2.5-4.9)
[2025-04-08] MEDS ORDERED: METH-653 MT (22:06)
[2025-04-08] MEDS ORDERED: IBUP-2028 MT (22:06)
[2025-04-08 22:30] VITALS: BP 152/78; PULSE 75; RESP 15; TEMP 36.3; O2SAT 96
== END 2025-04-08 22:30 | disposition home or self-care (01) ==
LOC: ER 18:40
DX: M79.652 Pain in left thigh (principal); I10 Essential (primary) hypertension; E11.9 Type 2 diabetes mellitus without complications; G40.909 Epilepsy, unspecified, not intractable, without status epilepticus; I69.351 Hemiplegia and hemiparesis following cerebral infarction affecting right dominant side; E03.9 Hypothyroidism, unspecified; Z79.890 Hormone replacement therapy; Z79.82 Long term (current) use of aspirin; Z88.5 Allergy status to narcotic agent; Z79.899 Other long term (current) drug therapy; Z79.02 Long term (current) use of antithrombotics/antiplatelets
CPT/HCPCS: 99285; 93971; 80048; 82550; 83735; 84100; 85025; 85610; 36415; 73552; 73562; 96372; J1885

== ENCOUNTER 2025-05-17 12:35 | Emergency (ER) | payer BC ==
[~2025-05-17] VITALS: Ht 165.1 cm; Wt 100.0 kg
[~2025-05-17 12:35] MED LIST changes: +IBUP-2028 MT; +METH-653 MT
[2025-05-17 12:44] VITALS: O2SAT 99
[2025-05-17 18:46] VITALS: TEMP 37.1
[2025-05-17] MEDS ORDERED: IBUP-2028 MT (19:48)
[2025-05-17] MEDS: KETOROLAC 30MG/ML VIAL IM ONE (20:20)
[2025-05-17 20:53] VITALS: BP 148/71; PULSE 73; RESP 16; O2SAT 100
== END 2025-05-17 20:55 | disposition home or self-care (01) ==
LOC: ER 12:35
DX: M79.662 Pain in left lower leg (principal); I10 Essential (primary) hypertension; E11.9 Type 2 diabetes mellitus without complications; Z86.73 Personal history of transient ischemic attack (TIA), and cerebral infarction without residual deficits; Z79.890 Hormone replacement therapy; Z79.899 Other long term (current) drug therapy; Z79.02 Long term (current) use of antithrombotics/antiplatelets; Z79.82 Long term (current) use of aspirin; Z88.5 Allergy status to narcotic agent
CPT/HCPCS: 99285; 93971; 73590; 73610; 96372; J1885